=== PATIENT | female | born 1980 | race Caucasian/White ===

== ENCOUNTER 2021-02-25 16:20 | Inpatient (IN) | payer OTHER ==
[~2021-02-25] VITALS: Ht 165.1 cm; Wt 75.9 kg
[2021-02-25 17:26] VITALS: BP 104/75; PULSE 99; TEMP 97.5
--- NOTE | 2021-02-25 17:30 | NUR ---
Pt arrived to medical unit room 358 via EMS at this time. Oriented pt to room. Admission assessments and med rec completed. notified of pt's arrival and at bedside at this time. 22 gauge IV to left forearm intact and w/o s/s complication. Pt reports abdominal pain and nausea at this time, awaiting orders from .
[2021-02-25 19:01] LABS: HEMOGLOBIN 11.3 g/dl (12.5-16.0); MEAN CELL VOLUME 114 fl (80.0-100.0); MEAN CORPUSCULAR HEMOGLOBIN 38 pg (27.0-31.0); MEAN CORPUSCULAR HGB CONC 34 g/dl (33.0-37.0); MEAN PLATELET VOLUME 9.5 fl (7.4-10.4); PLATELET COUNT 129 K/mm3 (130-400); RED BLOOD COUNT 2.95 M/mm3 (4.10-5.30); REDCELL DISTRIBUTION WIDTH-CV 16.7 % (11.5-14.5)
[2021-02-25 19:10] LABS: HEMATOCRIT 33.5 % (37.0-47.0)
[2021-02-25 19:13] LABS: ALBUMIN 3.1 gm/dL (3.5-5.0); ALKALINE PHOSPHATASE 113 U/L (50-136); ANION GAP 5 mmol/L (7-16); BILIRUBIN,TOTAL 1.8 mg/dL (0.0-1.0); CALCIUM 7.8 mg/dL (8.4-10.2); CARBON DIOXIDE 32 mmol/L (22-30); CHLORIDE 95 mmol/L (98-107); CREATININE, serum 0.35 (0.52-1.25); GLUCOSE 93 mg/dL (74-106); POTASSIUM 3.1 mmol/L (3.4-5.0); SODIUM 131 mmol/L (137-145)
[2021-02-25 19:18] LABS: ALANINE AMINOTRANSFERASE > 750 U/L (4-34); BLOOD UREA NITROGEN < 2 mg/dL (7-17)
[2021-02-25 19:20] LABS: AST,SGOT > 1500 U/L (15-37)
--- NOTE | 2021-02-25 20:00 | NUR ---
Report received, assumed care for alumni relations coordinator. Assessment complete. Irritated with providers/staff. Refusing vital signs. States "they just took them, Im not doing it again." Rating pain 9/10 to abdomen and back-requesting morphine. Discussed fact that blood pressure has been low and I would not give narcotics with no recent VS. Agreed to vitals at that point. Agitated that she has to have blood drawn and take more potassium. Eventually did agree. Denies questions/concerns-just makes a point to state she needs her pain medications when they are due. Discussed PRN and that pain meds need to be asked for-discussed this nurse will not just automatically bring pain medications when time is due. Verbalizes understanding. Denies any other questions/concerns. Call light in reach. Will monitor.
[2021-02-25 20:05] VITALS: BP 108/68; PULSE 98; TEMP 97.6
[2021-02-25 20:12] LABS: EOSINOPHIL 6 % (0-4); LYMPHOCYTE 12 % (20.0-51.0); NEUTROPHILS 74 % (42.0-75.2); NUCLEATED RED BLOOD CELL 1 (0-6)
--- NOTE | 2021-02-25 20:34 | NUR ---
Dr Hawley at bedside to evaluate patient.
--- NOTE | 2021-02-25 20:40 | NUR ---
Called with c/o "itching" to upper/lower extremities. Requesting Benadryl. JOSEPH Wagner notified and new orders received.
[2021-02-25 22:41] VITALS: BP 81/52; PULSE 93; TEMP 97.9
[2021-02-25 22:59] LABS: MUCOUS Present /lpf; PH 6 (5-8); URINE APPEARANCE Hazy; URINE BACTERIA Rare /hpf; URINE BILIRUBIN Negative (NEGATIVE); URINE BLOOD Negative (NEGATIVE); URINE COLOR Yellow; URINE GLUCOSE Negative (NEGATIVE); URINE KETONE 1+ (NEGATIVE); URINE LEUKOCYTE ESTERASE Negative (NEGATIVE); URINE NITRATE Negative (NEGATIVE); URINE PROTEIN(semi-quant) Negative (NEGATIVE); URINE RBC 0-2 /hpf; URINE UROBILINOGEN Negative (NEGATIVE)
[2021-02-25 23:13] VITALS: BP 91/69; PULSE 87; TEMP 97.3
[2021-02-25 23:30] LABS: COLLECTION METHOD CLEAN CATCH
[2021-02-26] VITALS (7 sets, daily range): BP systolic 91–122; BP diastolic 70–94; PULSE 81–121; TEMP 97.4–97.9
--- NOTE | 2021-02-26 04:16 | NUR ---
Called with c/o pain to back/abdomen-rating pain 9/10 on pain scale described as constant throbbing. Morphine given per dr order.
--- NOTE | 2021-02-26 05:45 | NUR ---
Called stating she felt like her face was swollen and it felt "tingly," VS WNL-O2 saturation 98% on RA. No swelling noted in mouth but cheeks do look a little bit more swollen this morning compared to last NOC. JOSEPH Wagner notified of new symptoms. Benadryl given. JOSEPH Wagner at bedside to evaluate. New orders received for labs. Will continue to monitor.
--- NOTE | 2021-02-26 07:00 | NUR ---
Report received from SKIP Cruz. Pt in bed resting, requesting pain medicine. Will continue to monitor.
--- NOTE | 2021-02-26 08:35 | NUR ---
Assessment charted. Disucssed plan for PICC line, pt agreeable to plan. Resting in chair at side of bed, discussed plan for the day and need to stay NPO until afte rwe can get ABD US this afternoon, agreeable to this. Pain is 8/10 to low back, chronic issue for her that is exacerbated now, denies pain in ABD or anywhere else. Feels she is more swollen today, BLE +2 and facial swelling. willl get labs once PICC placed. PRN pain and inflammatory meds provided per request. will ocnitnue to monitor.
[2021-02-26 08:44] LABS: PATHOLOGY DIFF REVIEW OK
[2021-02-26 09:33] LABS: HEMATOCRIT 29.5 % (37.0-47.0); HEMOGLOBIN 10.4 g/dl (12.5-16.0); MEAN CELL VOLUME 111 fl (80.0-100.0); MEAN CORPUSCULAR HEMOGLOBIN 39 pg (27.0-31.0); MEAN CORPUSCULAR HGB CONC 35 g/dl (33.0-37.0); MEAN PLATELET VOLUME 9.7 fl (7.4-10.4); PLATELET COUNT 138 K/mm3 (130-400); RED BLOOD COUNT 2.66 M/mm3 (4.10-5.30); REDCELL DISTRIBUTION WIDTH-CV 16.8 % (11.5-14.5)
[2021-02-26 09:40] LABS: INR 1.1 (0.8-3.0); PROTHROMBIN TIME 12.1 SECONDS (9.7-12.8)
[2021-02-26 09:55] LABS: ALANINE AMINOTRANSFERASE 691 U/L (4-34); ALBUMIN 2.7 gm/dL (3.5-5.0); ALKALINE PHOSPHATASE 96 U/L (50-136); ANION GAP 4 mmol/L (7-16); AST,SGOT 723 U/L (15-37); BILIRUBIN,TOTAL 1.4 mg/dL (0.0-1.0); CALCIUM 7.8 mg/dL (8.4-10.2); CARBON DIOXIDE 30 mmol/L (22-30); CHLORIDE 97 mmol/L (98-107); CREATININE, serum 0.35 (0.52-1.25); GLUCOSE 112 mg/dL (74-106); MAGNESIUM 1.5 mg/dL (1.6-2.3); POTASSIUM 3.3 mmol/L (3.4-5.0); SODIUM 131 mmol/L (137-145); TOTAL PROTEIN 5.2 gm/dL (6.4-8.2)
[2021-02-26 09:57] LABS: BLOOD UREA NITROGEN < 2 mg/dL (7-17)
[2021-02-26 10:22] LABS: BAND 4 % (0-10); EOSINOPHIL 3 % (0-4); LYMPHOCYTE 15 % (20.0-51.0); METAMYELOCYTE 7 % (0-0); NEUTROPHILS 61 % (42.0-75.2); PLATELET ESTIMATE NORMAL (NORMAL)
[2021-02-26 10:23] LABS: ANISOCYTOSIS 1+
[2021-02-26 10:25] LABS: TEAR DROP CELLS 1+
[2021-02-26 10:26] LABS: MICROCYTOSIS 1+
--- NOTE | 2021-02-26 15:24 | NUR ---
Emergency Manager met with patient to discuss discharge plan. Patient lives in [place] with her , Aroldo (ph#[phone]) and sees Dr. Torres at [facility] for primary care. Patient also obtains medications from [facility]. Patient does not use any DME and is independent with ADLS. Patient does not have Advance Directives and is not interested in completing DPOA-HC at this time. Patient plans to return home upon discharge. Discharge Plan: Home
--- NOTE | 2021-02-26 18:12 | NUR ---
Pt has done well today over shift. Resting in bed, feels she is getting more dizzy upon ambulation, made into a high fall risk for tonight. Started bowel prep at this time, pt educated on plan for care. Agreeable to do his best. Denies needs, PRN pain meds given per request over shift as well as PRN benadryl over shift per request. Feels things are tasting off and has numbness to face Wyatt aware and orders received. Will give bedside shift report to nightshift nurse who will resume care.
--- NOTE | 2021-02-26 19:20 | NUR ---
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 Assessment complete. A&Ox3-very drowsy. VS stable. Denies nausea/shortness of breath. Rating pain 5/10 on pain scale described as low back pain. States pain is tolerable and can wait for pain medications. States she will call when ready. Plan of care discussed for this shift to include HS meds/magnesium/pain control/bowel prep/calling for questions/concerns. Verbalizes understanding/denies needs. Call light in reach/will monitor.
--- NOTE | 2021-02-26 20:40 | NUR ---
Called requesting pain mecications-rating pain 9/10 on pain scale to lower back-described as constant ache with intermittent throbbing.Oxycodone given per dr order. Also requested benadryl for itching. Given per dr order. Will monitor.
--- NOTE | 2021-02-26 20:55 | NUR ---
Bowel prep completed. Instructed to call for assistance to bathroom due unsteady gait. Verbalizes understanding. Will continue to monitor.
[2021-02-26 22:41] LABS: FOLATE (FOLIC ACID) 3.6 ng/mL (2.0-20.0)
[2021-02-27] VITALS (7 sets, daily range): BP systolic 105–140; BP diastolic 83–91; PULSE 94–123; TEMP 97–97.7
--- NOTE | 2021-02-27 00:30 | NUR ---
DEJAN LeyCDPT-Jiwecygnhms-qoosibnpd for order clarification on Magnesium frequency. New orders received to draw magnesium level now before hanging next dose.
--- NOTE | 2021-02-27 00:47 | NUR ---
Called with c/o pain to back-rating pain 8/10 on pain scale described as constant throbbing. Hydrocodone given. While this nurse was in room patient stated she was having a hard time taking a deep breath. States she was sitting on the bed and got very anxious about her tests tomorrow and felt short of breath. Vital signs taken-BP 116/88, pulse 101, SPO2 100% on room air and RR 16. Sat with patient and talked about tests tomorrow. Much more relaxed and states she feels much better. Lab here to draw magnesium level. PICC line with good blood return-flushes without difficulty. Will continue to monitor.
--- NOTE | 2021-02-27 01:08 | NUR ---
Magnesium level 2.3 called to DEJAN Ley. New orders received to HOLD Magnesium Sulfate infusion until clarification with Provider in AM. Hold placed.
--- NOTE | 2021-02-27 02:30 | NUR ---
Resting eyes closed. No s/s of pain/discomfort noted.
--- NOTE | 2021-02-27 04:48 | NUR ---
Called with c/o pain to back-rating pain 9/10 on pain scale-described as constant thorbbing. Hydrocodone given per dr order. States she has finally started having bowel movements. States she has had approx 4 bowel large bowel movements. Denies any other questions/concerns. Call light in reach. Will monitor.
--- NOTE | 2021-02-27 05:34 | NUR ---
NS@30ml/hr initiated per dr kunz. Changed into gown/undergarments off. Lab here to draw off PICC line. PICC line flushes well but no blood return even with different positioning. Refusing for lab to do peripheral draw at this time.
[2021-02-27 07:24] LABS: BILIRUBIN UNCONJUGATED 0.5 mg/dL (0.0-1.1); BILIRUBIN,DIRECT 0.5 mg/dL (0.0-0.4); BILIRUBIN,TOTAL 0.9 mg/dL (0.0-1.0); TOTAL PROTEIN 3.9 gm/dL (6.4-8.2)
[2021-02-27 07:29] LABS: POTASSIUM 2.3 mmol/L (3.4-5.0)
[2021-02-27 07:37] LABS: MAGNESIUM 1.6 mg/dL (1.6-2.3)
--- NOTE | 2021-02-27 09:24 | NUR ---
Initial visit; Patient thanked Stocking Inspector for looking in on her and offering God's blessings. Patient Chaplain cirilo will follow up.
--- NOTE | 2021-02-27 10:21 | NUR ---
Correctional Classification Counselor attended clinical rounds with the team. The patient is not ready for discharge today. *Discharge disposition: Home
--- NOTE | 2021-02-27 13:22 | NUR ---
Pt is refusing to eat a mechanical soft diet and states "It is gross--that is baby food". Demanding a regular diet be ordered despite discussion about mechanical soft diet being better able to move through her system as her stomach still had food in it this morning for her scope. Pt states "I will not eat unless I can have a regular diet!" Again reviewed the reason a mechanical soft diet was ordered but demands regular diet. I have spoken with Dr Hawley by phone and advised him of the situation, he did agree that she could have a regular diet--if she won't eat any other way but she must understand this is not the best diet for her at this time. Regular diet ordered per telephone order.
[2021-02-28 06:30] LABS: HEMOGLOBIN 11.2 g/dl (12.5-16.0); MEAN CELL VOLUME 111 fl (80.0-100.0); MEAN CORPUSCULAR HEMOGLOBIN 38 pg (27.0-31.0); MEAN CORPUSCULAR HGB CONC 34 g/dl (33.0-37.0); MEAN PLATELET VOLUME 9.9 fl (7.4-10.4); PLATELET COUNT 148 K/mm3 (130-400); RED BLOOD COUNT 2.99 M/mm3 (4.10-5.30)
[2021-02-28 06:33] LABS: HEMATOCRIT 33.3 % (37.0-47.0)
[2021-02-28 06:45] LABS: ALANINE AMINOTRANSFERASE 414 U/L (4-34); ALBUMIN 3.1 gm/dL (3.5-5.0); ALKALINE PHOSPHATASE 103 U/L (50-136); ANION GAP 4 mmol/L (7-16); AST,SGOT 168 U/L (15-37); BILIRUBIN,TOTAL 1.4 mg/dL (0.0-1.0); CALCIUM 7.6 mg/dL (8.4-10.2); CARBON DIOXIDE 30 mmol/L (22-30); CHLORIDE 97 mmol/L (98-107); GLUCOSE 89 mg/dL (74-106); MAGNESIUM 1.9 mg/dL (1.6-2.3); POTASSIUM 3.5 mmol/L (3.4-5.0); SODIUM 131 mmol/L (137-145); TOTAL PROTEIN 5.8 gm/dL (6.4-8.2)
[2021-02-28 06:56] LABS: BLOOD UREA NITROGEN < 2 mg/dL (7-17)
--- NOTE | 2021-02-28 07:00 | NUR ---
Report received from SKIP Govea. PT not in room at this time for test, will await return.
[2021-02-28 07:19] LABS: BILIRUBIN,DIRECT 0.6 mg/dL (0.0-0.4)
[2021-02-28 07:20] LABS: BILIRUBIN UNCONJUGATED 0.7 mg/dL (0.0-1.1)
--- NOTE | 2021-02-28 09:00 | NUR ---
Pt returned at this time from radiology for gastric emptying test, needs to get 4 horus pictures at 1045 and will remain NPO until that itme, PRN pain pill okay to give per radiology. PT states she is uanble to see much d/t her blurred vision that has started on this admission. Relayed this to hospitalist. Pt c/o pain to 8/10 to low back. PICC to [facility]. Will await second test and continue to monitor.
[2021-02-28 09:17] VITALS: BP 134/99; PULSE 118; TEMP 97.6
--- NOTE | 2021-02-28 09:37 | NUR ---
Aircraft Tool Maker attended clinical rounds with the team. PT has signed off. The patient is independent and plans to return home at discharge.
[2021-02-28 11:31] VITALS: BP 132/69; PULSE 113; TEMP 97.2
[2021-02-28 15:16] LABS: ANTISMOOTH MUSCLE ANTIBODY Negative (Negative)
[2021-02-28 17:20] VITALS: BP 128/83; PULSE 104; TEMP 97.7
--- NOTE | 2021-02-28 19:28 | NUR ---
Pt rested off and on this afternoon. PRN pain and benadryl given per request until spoke with hospitalist and orders recieved to dc IV pain meds and dc bendadryl. Pt states she was not told this by hospitalist and does seem upset but agreeable to have PO pain option still. Dr. Patrick, opthalmology here to see pt this evening and dilated eyes on pt, notes in chart ih his recommendation. Bedside shift report given to nightshift nurse who will resume care.
[2021-02-28 19:52] VITALS: BP 116/83; PULSE 108; TEMP 97.5
[2021-02-28 23:10] VITALS: BP 126/97; PULSE 110; TEMP 97.5
[2021-03-01 03:05] VITALS: BP 109/82; PULSE 106; TEMP 97.6
--- NOTE | 2021-03-01 05:57 | NUR ---
Patient has had an uneventful night. Her chronic low back pain is still present and she has received 5 mg roxicodone twice for this. She states she had some difficulty sleeping overnight. No complaints of vision changes. Her facial swelling appears to be improving. No additional concerns, will continue to monitor.
[2021-03-01 07:39] VITALS: BP 110/80; PULSE 107; TEMP 97.6
--- NOTE | 2021-03-01 08:00 | NUR ---
PT AOX4, REFUSING TO PUT TELE ON AFTER SHOWER BECAUSE "I'M DISCHARGING TODAY". PT REFUSED LOVENOX, MIRALAX, AND DOCUSATE. ORAL POTASSIUM REPLACEMENT GIVEN, PT REPORTING PAIN 9/10 IN BACK. ASSESSMENT PERFORMED, NO OTHER NEESD
[2021-03-01] MEDS ORDERED: SENEXON-S 50-81 EACH PO (12:05)
[2021-03-01] MEDS ORDERED: MIRALAX PA17 GM/Dose PO (12:05)
[2021-03-01] MEDS ORDERED: PROTONIX 40MG T40 MG PO (12:06)
[2021-03-01] MEDS ORDERED: REGLAN 5MG T5 MG/TAB PO (12:07)
--- NOTE | 2021-03-01 12:16 | NUR ---
PCP [facility] Dr.Sarah Torres
--- NOTE | 2021-03-01 12:20 | NUR ---
PT REFUSING VITAL SIGNS
[2021-03-01 14:08] VITALS: BP 105/85; PULSE 111
--- NOTE | 2021-03-01 14:13 | NUR ---
PICC LINE REMOVED, PRESSURE HELD FOR 10 MINUTES. GAUZE AND TEGARDERM PLACED. DISCHARGE EDUCATION PROVIDED. PT STARTED C/O ABD PRESSURE ASKED WHEN LAST BM WAS, PT STATED ONE WEEK AGO. PT HAD PREVIOUSLY REFUSED MIRALAX AND DOCUSATE SENNA. OFFERED IT AGAIN AND PT ACCEPTED IT, REFUSED POTASSIUM. PT THEN REPORTED BEING DIZZY BUT STABLE WITH AMBULATION IN ROOM, PT ALLOWED VITALS TO BE TAKEN, STABLE VITALS. DR. ALCALA NOTIFIED, STILL OK TO [place].
--- NOTE | 2021-03-01 14:45 | NUR ---
PT ESORTED OUT VIA WHEELCHAIR WITH PT BELONGINGS. NO OTHER NEEDS.
== END 2021-03-01 14:45 | disposition home or self-care (01) | DRG 442 ==
LOC: MEDICAL 16:20
PROVIDERS: Internal Medicine Gastroenterology; Physician Assistant; ADMIT Emergency Medicine
PROC: 02HV33Z Insertion of Infusion Device into Superior Vena Cava, Percutaneous Approach (ICD-10-PCS; 2021-02-26)
PROC: 0DJD8ZZ Inspection of Lower Intestinal Tract, Via Natural or Artificial Opening Endoscopic (ICD-10-PCS; principal; 2021-02-27 07:00)
DX: K75.4 Autoimmune hepatitis (principal); B17.9 Acute viral hepatitis, unspecified; E87.1 Hypo-osmolality and hyponatremia; R74.01 Elevation of levels of liver transaminase levels; K76.0 Fatty (change of) liver, not elsewhere classified; K59.00 Constipation, unspecified; R51.9 Headache, unspecified; R20.2 Paresthesia of skin; H53.8 Other visual disturbances; K22.2 Esophageal obstruction; E87.6 Hypokalemia; E83.42 Hypomagnesemia; R00.1 Bradycardia, unspecified; D64.9 Anemia, unspecified; D69.6 Thrombocytopenia, unspecified; K64.0 First degree hemorrhoids
CPT/HCPCS: 99222-AI; 99232-AI; 99233-AI; 99239; A9541; A9585; C1726; C1751; J1650; J2270; J2405; J2704; J2765; J3475; J3480

== ENCOUNTER 2021-05-30 04:52 | Inpatient (IN) | payer OTHER ==
[~2021-05-30] VITALS: Ht 165.1 cm; Wt 63.4 kg
[~2021-05-30 04:52] MED LIST: MIRALAX PA17 GM/Dose PO; PROTONIX 40MG T40 MG PO; REGLAN 5MG T5 MG/TAB PO; SENEXON-S 50-81 EACH PO
--- NOTE | 2021-05-30 06:55 | NUR ---
Patient arrived to room 352 at this time, she is alert/oriented, reports pain controlled, she is ambulatory and I assisted her to the bathroom
[2021-05-30 07:18] LABS: COLLECTION METHOD CLEAN CATCH
[2021-05-30] MEDS ORDERED: MAG-OX 400400 MG/TAB PO (07:28)
[2021-05-30 08:17] VITALS: BP 111/82; PULSE 78; TEMP 97.9
[2021-05-30 08:27] LABS: MUCOUS Present /lpf; PH 6 (5-8); URINE APPEARANCE Hazy; URINE BACTERIA None Seen /hpf; URINE BILIRUBIN Negative (NEGATIVE); URINE BLOOD Negative (NEGATIVE); URINE COLOR Amber; URINE GLUCOSE Negative (NEGATIVE); URINE KETONE 1+ (NEGATIVE); URINE LEUKOCYTE ESTERASE Negative (NEGATIVE); URINE NITRATE Negative (NEGATIVE); URINE PROTEIN(semi-quant) 2+ (NEGATIVE); URINE UROBILINOGEN >=4.0 mg/dL (NEGATIVE)
--- NOTE | 2021-05-30 10:56 | NUR ---
Assessment completed, alert/oriented, vital signs stable, reports generalized abd pain is constant but improved some overall, she denies nausea and stated she is hungry, she is NPO for GI consult and Abd CT, BS+ throughout, she reports decreased urine output over last 48 hr/ she was able to void upon admitt and I sent a specimen to lab, IV to left wrist and NS infusing at 100cc/hr, home meds/allergies/pharmacy reviewed, I have discussed plan of care with hospitalist
[2021-05-30 11:38] VITALS: BP 109/69; PULSE 77; TEMP 97.7
[2021-05-30 12:11] LABS: INR 1.3 (0.8-3.0); PROTHROMBIN TIME 14.5 SECONDS (9.7-12.8)
--- NOTE | 2021-05-30 13:38 | NUR ---
Cam met with the pt who stated her preference to return home once medically stable. The pt lives at home with her and children. Her is Aroldo (ph# [phone]). The pt is independent on all ADLs and does not use any DME except for Glucometer. The pt PCP is Dr. Newsome on [facility] and uses [facility] for medications. No troubles obtaining it. The pt does not have DPOA-HC and is not interested in one at this time. No other needs at this time. Sw to wait further recommendations. D/C: Home with .
[2021-05-30 15:54] VITALS: BP 91/52; PULSE 77; TEMP 98
[2021-05-30 19:37] VITALS: BP 99/72; PULSE 92; TEMP 97.6
--- NOTE | 2021-05-30 20:00 | NUR ---
Initial shift assessment done- states abd pain 05/20-requesting morphine--will give at this time, has been sleeping for the past few hours, IV fluids of NS at 100cc/hr
[2021-05-30 22:17] LABS: FOLATE (FOLIC ACID) 1.2 ng/mL (2.0-20.0)
[2021-05-31] VITALS (7 sets, daily range): BP systolic 84–101; BP diastolic 59–71; PULSE 76–97; TEMP 97.9–98.9
--- NOTE | 2021-05-31 05:40 | NUR ---
Quiet night-- did get Morphine IV x3 this shift , denies nausea--taking a few clear liquids- jellos etc,, voided 700cc this shift of a dark/orange colored urine.SCD,s on. NS continues at 100cc/hr.
[2021-05-31 07:32] LABS: CALCIUM 7.1 mg/dL (8.4-10.2); CREATININE, serum 0.42 (0.52-1.25); MAGNESIUM 1.9 mg/dL (1.6-2.3)
[2021-05-31 07:39] LABS: POTASSIUM 2.8 mmol/L (3.4-5.0)
--- NOTE | 2021-05-31 08:20 | NUR ---
Shift assessment complete. Pt resting in bed, A&Ox4. Reports 9/10 sharp pain across lower abdomen w/tenderness to palpation. Also reports feeling bloated. Abdomen soft, nondistended. Heart RRR. Lungs CTA. Morphine given per orders for pain. Potassium replaced per protocol. Pt given apple juice due to blood sugar of 66 this morning. Will recheck blood sugar in one hour. Denies other needs currently. Call light in reach.
[2021-05-31 11:18] LABS: MEAN CELL VOLUME 106 fl (80.0-100.0); MEAN CORPUSCULAR HGB CONC 32 g/dl (33.0-37.0); MEAN PLATELET VOLUME 12.7 fl (7.4-10.4); RED BLOOD COUNT 2.65 M/mm3 (4.10-5.30); REDCELL DISTRIBUTION WIDTH-CV 17.9 % (11.5-14.5)
[2021-05-31 11:18] LABS: ALBUMIN 2.8 gm/dL (3.5-5.0); BILIRUBIN UNCONJUGATED 1.8 mg/dL (0.0-1.1); BILIRUBIN,TOTAL 2.8 mg/dL (0.0-1.0); TOTAL PROTEIN 5.8 gm/dL (6.4-8.2)
[2021-05-31 11:29] LABS: HEMATOCRIT 28.2 % (37.0-47.0); HEMOGLOBIN 9.1 g/dl (12.5-16.0); MEAN CORPUSCULAR HEMOGLOBIN 34 pg (27.0-31.0)
[2021-05-31 11:32] LABS: PLATELET COUNT 36 K/mm3 (130-400)
[2021-05-31 11:47] LABS: BAND 3 % (0-10); EOSINOPHIL 1 % (0-4); LYMPHOCYTE 29 % (20.0-51.0); NEUTROPHILS 66 % (42.0-75.2); PLATELET ESTIMATE DECREASED (NORMAL)
[2021-05-31 15:36] LABS: BASO % 0.9 % (0.0-2.0); EOS # 0.1 (0.0-0.7); EOS % 2.1 % (0-4.0); GRAN # 1.6 (1.4-6.5); GRAN % 67.1 % (42.2-75.2); LYMPH # 0.5 (1.2-3.4); LYMPH % 22.6 % (20.0-51.0); MEAN CELL VOLUME 105 fl (80.0-100.0); MEAN CORPUSCULAR HGB CONC 34 g/dl (33.0-37.0); MEAN PLATELET VOLUME 13.8 fl (7.4-10.4); MONO # 0.1 (0.1-0.6); RED BLOOD COUNT 2.13 M/mm3 (4.10-5.30); REDCELL DISTRIBUTION WIDTH-CV 17.9 % (11.5-14.5)
[2021-05-31 15:38] LABS: HEMATOCRIT 22.3 % (37.0-47.0); HEMOGLOBIN 7.5 g/dl (12.5-16.0); MEAN CORPUSCULAR HEMOGLOBIN 35 pg (27.0-31.0)
[2021-05-31 15:39] LABS: PLATELET COUNT 25 K/mm3 (130-400)
--- NOTE | 2021-05-31 20:45 | NUR ---
Initial shift assessment done- states abd pain 8/,across upper abd and back, will give Morphine at this time as ordered, VSS, Did eat some of her [place] diet for supper- 10-20%, denies nausea. SCD,s on.
[2021-06-01 00:13] VITALS: BP 98/55; PULSE 84; TEMP 97.9
[2021-06-01 03:45] VITALS: BP 100/52; PULSE 70; TEMP 98.8
--- NOTE | 2021-06-01 06:00 | NUR ---
Did sleep fair during the night-- was medicated with morphine IV x3 for abd pain- VSS,, tolerating bland diet without nausea
--- NOTE | 2021-06-01 07:30 | NUR ---
Shift assessment complete. Pt sitting up in bed eating breakfast, tolerating well. Reports increased abdominal pain w/sitting up straight and requests pain meds when they are due. Abdomen soft, nondistended. Some tenderness to palpation. Bowel sounds active all quadrants. Denies other needs at this time. Continuing to monitor.
[2021-06-01 08:46] LABS: BASO % 0.4 % (0.0-2.0); EOS # 0.1 (0.0-0.7); EOS % 2.2 % (0-4.0); GRAN # 1.5 (1.4-6.5); GRAN % 55.5 % (42.2-75.2); LYMPH % 36.3 % (20.0-51.0); MEAN CELL VOLUME 104 fl (80.0-100.0); MEAN CORPUSCULAR HGB CONC 33 g/dl (33.0-37.0); MEAN PLATELET VOLUME 12.6 fl (7.4-10.4); MONO # 0.1 (0.1-0.6); MONO % 5.2 % (1.7-9.3); RED BLOOD COUNT 2.65 M/mm3 (4.10-5.30); REDCELL DISTRIBUTION WIDTH-CV 17.6 % (11.5-14.5)
[2021-06-01 08:49] LABS: HEMATOCRIT 27.6 % (37.0-47.0); HEMOGLOBIN 9.2 g/dl (12.5-16.0); MEAN CORPUSCULAR HEMOGLOBIN 35 pg (27.0-31.0)
[2021-06-01 08:50] VITALS: BP 101/75; PULSE 79; TEMP 98.5
[2021-06-01 08:50] LABS: PLATELET COUNT 42 K/mm3 (130-400)
[2021-06-01 08:55] LABS: ALBUMIN 2.8 gm/dL (3.5-5.0); BILIRUBIN,TOTAL 2.1 mg/dL (0.0-1.0); CALCIUM 7.5 mg/dL (8.4-10.2); CREATININE, serum 0.37 (0.52-1.25); POTASSIUM 3.3 mmol/L (3.4-5.0); TOTAL PROTEIN 5.6 gm/dL (6.4-8.2)
[2021-06-01] MEDS ORDERED: FOLIC ACID 11 MG/TA1 PO (08:59)
[2021-06-01] MEDS ORDERED: THIAMINE 1100 MG/TAB PO (09:00)
[2021-06-01] MEDS ORDERED: DUO-KAPS1 CAP PO (09:01)
[2021-06-01] MEDS ORDERED: ULTRAM 50MG TAB50 MG PO ×2 (09:02→09:04)
--- NOTE | 2021-06-01 11:30 | NUR ---
Discharge instructions discussed w/pt and all questions answered. IV to left wrist removed w/tip intact. Pt escorted out w/all belongings.
== END 2021-06-01 11:45 | disposition home or self-care (01) | DRG 392 ==
LOC: MEDICAL 04:52
PROVIDERS: Physician Assistant; ADMIT Student in an Organized Health Care Education/Training Program
DX: R10.9 Unspecified abdominal pain (principal); D61.818 Other pancytopenia; F10.10 Alcohol abuse, uncomplicated; Y90.0 Blood alcohol level of less than 20 mg/100 ml; K31.84 Gastroparesis; K21.9 Gastro-esophageal reflux disease without esophagitis; D64.9 Anemia, unspecified; E83.42 Hypomagnesemia; E87.6 Hypokalemia; E16.2 Hypoglycemia, unspecified; I95.9 Hypotension, unspecified; G43.909 Migraine, unspecified, not intractable, without status migrainosus; Z20.822 Contact with and (suspected) exposure to COVID-19; E88.89 Other specified metabolic disorders; R80.9 Proteinuria, unspecified; Z87.891 Personal history of nicotine dependence
CPT/HCPCS: 99222-AI; 99232-AI; 99239; J2270; J2405; J3475; J7030; Q9967